=== PATIENT | male | born 1965 | race Two or more races ===

== ENCOUNTER 2018-02-15 20:38 | Emergency (ER) | payer OTHER ==
[~2018-02-15] VITALS: Ht 154.9 cm; Wt 72.6 kg
[~2018-02-15 20:38] MED LIST: IBUPROFEN600 MG ORAL; NKM; NORCO 5-325 TA1 EACH ORAL; OCUFLOX5 ML RIGHT EYE
[2018-02-15] MEDS ORDERED: ACETAMINOPHEN120 MG RECTAL (20:56)
--- NOTE | 2018-02-15 21:12 | NUR ---
ED Nurse Note: Patient here because of injury to left hand while ate work. patient reports pain in finger 8/10.
[2018-02-15 21:13] VITALS: BP 121/75
--- NOTE | 2018-02-15 21:16 | Emergency Room Report ---
History of Present Illness General Chief Complaint: Upper Extremity Injury Source: Patient Present Illness HPI This is a 52-year-old male who is right-hand dominant who presents with left thumb injury. 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 He was in the kitchen last week washing dishes. When he was in the dishes away 3 cutting board and it fell and hit him on the wrist and thumb area. The wrist is better but now the thumb still hurting. Pain is to the base of the thumb. Worse with movement. Better with a splint. Pain is 7 out of 10. Denies any other injury. Allergies: Coded Allergies: No Known Allergies (Unverified , 04/15/14) Patient History Past Medical History: see triage record, old chart reviewed Past Surgical History: none Pertinent Family History: none Social History: Denies: smoking Immunizations: other Reviewed Nursing Documentation: PMH: Agreed; PSxH: Agreed Nursing Documentation-PM Past Medical History: No Stated History Review of Systems Eye: Denies: eye pain, blurred vision ENT: Denies: ear pain, nose congestion, throat swelling Respiratory: Denies: cough, shortness of breath Cardiovascular: Denies: chest pain, palpitations Gastrointestinal: Denies: abdominal pain, diarrhea, nausea, vomiting Musculoskeletal: Reports: joint pain; Denies: back pain Skin: Denies: rash Neurological: Denies: headache, numbness Endocrine: Denies: increased thirst, increased urine Hematologic/Lymphatic: Denies: easy bruising All Other Systems: negative except mentioned in HPI Physical Exam Vital Signs Date Time Temp Pulse Resp B/P (MAP) Pulse Ox O2 Delivery O2 Flow Rate FiO2 02/15/18 20:49 98.1 61 14 121/75 99 Room Air vitals normal Sp02 EP Interpretation: reviewed, normal General Appearance: well appearing, no apparent distress, alert Head: normocephalic, atraumatic Eyes: bilateral eye PERRL, bilateral eye EOMI ENT: hearing grossly normal, normal pharynx Neck: full range of motion, supple, no meningismus Respiratory: chest non-tender, lungs clear, normal breath sounds Cardiovascular #1: regular rate, rhythm, no murmur Gastrointestinal: normal bowel sounds, non tender, no mass, no organomegaly, no bruit, non-distended Musculoskeletal: back normal, gait/station normal, normal range of motion, other - Tenderness to the base of the left thumb at the MCP joint. No ecchymosis. Full range of motion. Psychiatric: mood/affect normal Skin: warm/dry Medical Decision Making Diagnostic Impression: Primary Impression: Left thumb sprain Qualified Codes: S63.642A - Sprain of metacarpophalangeal joint of left thumb , initial encounter ER Course Patient with a left thumb sprain. No fracture dislocation. Police already has a him spica splint on. We'll continue with that. Other X-Ray Diagnostic Results Other X-Ray Diagnostic Results : X-Ray ordered: Left thumb x-rays # of Views/Limited Vs Complete: 3 View Indication: Pain EP Interpretation: Yes Interpretation: no dislocation, no soft tissue swelling, no fractures Impression: No acute disease Electronically Signed by: Leoncio Fine MD Last Vital Signs Date Time Temp Pulse Resp B/P (MAP) Pulse Ox O2 Delivery O2 Flow Rate FiO2 02/15/18 20:49 98.1 61 14 121/75 99 Room Air Status: improved Disposition: HOME, SELF-CARE Condition: Stable Scripts Ibuprofen* (MOTRIN*) 600 Mg Tablet 600 MG ORAL THREE TIMES A DAY, #30 TAB 0 Refills Prov: Leoncio Fine MD 02/15/18 Additional Instructions: Follow-up with your employer within a week. Return if symptom worsen. Leoncio Fine MD Feb 15, 2018 21:16
[2018-02-15] MEDS ORDERED: IBUPROFEN600 MG ORAL (21:21)
[2018-02-15 21:38] VITALS: BP 118/76
--- NOTE | 2018-02-15 21:38 | NUR ---
ED Nurse Note: patient is being discharged from ED alert and oriented x4, ambulatory with a steady gait, VSS. patient acknowledged the need to follow up with PMD within a week if symptoms dont improve. Id band removed, all belongings sent home with patient, prescriptions in hand
--- NOTE | 2018-02-16 11:42 | Diagnostic Imaging Report ---
Indication: pain in finger. trauma Findings: 3 views of the left thumb was obtained. No acute fractures, malalignment, erosions, or periosteal reaction are seen. Soft tissues are unremarkable. Impression: No acute findings.
== END 2018-02-15 21:40 | disposition home or self-care (01) ==
LOC: EMR 21:15
DX: S63.602A Unspecified sprain of left thumb, initial encounter (principal); W20.8XXA Other cause of strike by thrown, projected or falling object, initial encounter; Y92.59 Other trade areas as the place of occurrence of the external cause; Y99.0 Civilian activity done for income or pay
CPT/HCPCS: 99283